=== PATIENT | female | born 1980 | race Hispanic/Latino ===

== ENCOUNTER 2016-10-27 13:22 | Emergency (ER) | payer OTHER ==
[~2016-10-27] VITALS: Ht 160 cm; Wt 79.4 kg
[~2016-10-27 13:22] MED LIST: ANTIVERT 25MG #1 PAC PO; ATIVAN0.5 MG PO; DOXYCYCLINE HY100 M4 PO; ESCITALOPRAM10 MG PO; EXCEDRIN MIGRAI1 TAB PO; FLONASE120 SPRAY/ NASB; IMITREX25 MG PO; IMITREX50 MG PO; LEVAQUIN500 MG PO; LEVSIN0.125 MG PO; LIDEX0.05 %/15 TOP; MIRENA52 MG; MOTRIN 600 MG600 MG PO; NORCO 325 MG-51 TAB PO; NOVAPLUS V0.09 MG/Ac INH; TESSALON PERLE100 MG PO; TRAMADOL50 MG PO; ZOFRAN 4 MG TABL4 MG PO; ZOFRAN4 M1 SL
[2016-10-27 13:41] VITALS: BP 111/80
--- NOTE | 2016-10-27 15:55 | ED UPPER/LOWER EXTREMITY COMPL ---
History of Present Illness General Chief Complaint: Lower Extremity Problems Stated Complaint: RIGHT LEG ISSUES Source: patient Exam Limitations: no limitations Vital Signs & Intake/Output Vital Signs & Intake/Output Vital Signs Date Time Temp Pulse Resp B/P Pulse O2 O2 Flow FiO2 Ox Delivery Rate 10/27 1540 Room Air 10/27 1341 98.9 94 20 111/80 99 Room Air Allergies Coded Allergies: Penicillins (unsure of reaction 08/01/16) Reconcile Medications Acetaminophen/Aspirin/Caffei (Excedrin Migraine 250 MG-250 MG-65 MG) 1 TAB TAB 1 TAB PO PRN HEADACHE (Reported) Doxycycline Hyclate 100 MG TABLET 1 TAB PO BID LYME Levonorgestrel (Mirena) 52 MG ICR CONTROL (Reported) Meclizine (Antivert) 25 MG PAC 1 TAB PO TIDPRN PRN dizziness Ondansetron (Zofran Odt) 4 MG ODT 1 ODT SL Q6P PRN NAUSEA Sumatriptan Succinate (Imitrex) 50 MG TAB 1 TAB PO DAILY NEEDED PRN Migraine Can repeat once after 2 hours if migraine persists. If no resolution, contact PCP Triage Note: RECEIVED 36 YO FEMALE C/O RIGHT ANKLE PAIN RADIATING UP LEG X ONE HOUR. PT UNABLE TO FLEX RIGHT KNEE OR ANKLE. OCCURED AFTER SITTING ON LEG FOR A WHILE THEN STRAIGHTENING IT OUT. Triage Nurses Notes Reviewed? yes Onset: Gradual Duration: constant Timing: single episode today Severity: severe Severity Numbers: 7 Method of Injury: unknown : No Patient currently breastfeeds: No HPI: Patient is a 36-year-old female who presents emergency and that 3 hours prior to arrival while in a seated position patient had acute onset of pain to the right lateral aspect of her heel and Achilles tendon in which she denies any mechanism injury however states that ambulation makes worse. Denies any ankle pain or foot pain Past History Travel History Traveled to [place] past 21 day No Medical History Any Pertinent Medical History? 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 No Review of Systems Review of Systems Constitutional: Reports: no symptoms. EENTM: Reports: no symptoms. Respiratory: Reports: no symptoms. Cardiovascular: Reports: no symptoms. Gastrointestinal/Abdominal: Reports: no symptoms. Genitourinary: Reports: no symptoms. Musculoskeletal: Reports: see HPI, joint pain. Skin: Reports: no symptoms. Neurological/Psychological: Reports: no symptoms. Hematologic/Endocrine: Reports: no symptoms. Immunological: Reports: no symptoms. All Other Systems: Reviewed and Negative Physical Exam Physical Exam General Appearance: well developed/nourished, no apparent distress, alert Neurologic/Tendon: normal sensation, normal motor functions, normal tendon functions, responds to pain, no evidence tendon injury Skin: intact, normal color, warm/dry Comments: Well-developed well-nourished no apparent distress. HEENT: Atraumatic, extraocular motion intact Neck: Supple, no lymphadenopathy Back: Nontender Respiratory: No respiratory distress Extremities: Neuro: Alert and oriented x3 Psych: Mood affect normal, normal memory normal judgment. Diagram Feet Left/Right 1) Posterior aspect of right lateral malleoli soft tissue point tenderness noted, Normal inspection Full active range of motion with pain elicited to plantarflexion and dorsiflexion and inversion 5 out of 5 resisted range of motion noted with pain noted with eversion and plantar flexion Pedal pulse +2 Dermatomes intact capillary refill less than 2 seconds Progress Differential Diagnosis: arterial insufficiency, cellulitis, compartment syndrome , contusion, dislocation, DVT, fracture, gout, septic arthritis, sprain, tendon injury Plan of Care: Patient has no mechanism of injury and at this time does not warrant emergent x- rays for patient's symptoms. Patient has reproducible pain with the right perineal muscle group for concerns of tendinitis. Patient was neurovascularly intact to the right foot and lower leg Patient was given [facility] practice for follow-up for primary care doctor. Patient was offered ibuprofen in the emergency room and declined Departure Departure Disposition: HOME OR SELF CARE Condition: Stable Clinical Impression Primary Impression: Peroneal tendonitis of right lower leg Referrals: EUGENIO COLLAZO MD (PCP/Family) Additional Instructions: As discussed you have been given a list of primary care doctors to establish, please call tomorrow the list OF new primary care doctor for follow-up. Begin icing the area directly 20 minutes every 2 hours. Begin [id number] ibuprofen for pain and inflammation. Begin using crutches until to walk without pain. If symptoms worsen return to emergency room. Departure Forms: Customer Survey General Discharge Information
== END 2016-10-27 16:03 ==
LOC: ERH 13:22
DX: M76.9 Unspecified enthesopathy, lower limb, excluding foot (principal)

== ENCOUNTER 2017-04-29 13:35 | Emergency (ER) | payer OTHER ==
[~2017-04-29] VITALS: Ht 160 cm; Wt 81.6 kg
[~2017-04-29 13:35] MED LIST changes: +AZITHROMYCIN250 M1 PO; +DIFLUCAN150 M1 PO; +EXCEDRIN MIGRA1 EAC1 PO; -EXCEDRIN MIGRAI1 TAB PO; +IMITREX50 M1 PO; +MIRENA1 EACH; -MIRENA52 MG
[2017-04-29 13:57] VITALS: BP 117/81
--- NOTE | 2017-04-29 15:16 | ED EAR COMPLAINT ---
History of Present Illness General Chief Complaint: Ear Complaints Stated Complaint: RIGHT EAR INFECTION Source: patient Exam Limitations: no limitations Vital Signs & Intake/Output Vital Signs & Intake/Output Vital Signs Date Time Temp Pulse Resp B/P B/P Pulse O2 O2 Flow FiO2 Mean Ox Delivery Rate 04/29 1357 97.0 85 20 117/81 98 Room Air Allergies Coded Allergies: Penicillins (unsure of reaction 08/01/16) Reconcile Medications Aspirin/Acetaminophen/Caffeine (Excedrin Migraine Caplet) 250 MG-250 MG-65 MG TABLET 1 TAB PO DAILY PRN HEADACHE (Reported) Azithromycin 250 MG TABLET 1 DP PO AD otitis media 2 the first day followed by 1 for days 2-5 Fluconazole (Diflucan) 150 MG TABLET 1 TAB PO ONCE yeast infection take 1 tab with yeast infection symptoms. take second tab if no resolution of symptoms in 72 hours Levonorgestrel (Mirena) 20 MCG/24 HOUR (5 YEARS) IUD BC (Reported) Sumatriptan Succinate (Imitrex) 50 MG TABLET 1 TAB PO DAILY PRN HEADACHE ( Reported) Triage Note: PT TO ED C/O CONTINUED B/L EAR PAIN. PT SEEN IN ED YESTERDAY, DIAGNOSED WITH DOUBLE EAR INFECTION. PT STARTED ZITHROMAX, HAS BEEN TAKING. PT FEELS LIKE SHE IS GETTING WORSE. AFEBRILE. Triage Nurses Notes Reviewed? yes Onset: Gradual Duration: constant Timing: recent history Severity: severe Severity Numbers: 7 : No Patient currently breastfeeds: No HPI: Patient is a 37-year-old female who presents emergency room with concerns of feeling no better of a bilateral ear infection which she was evaluated here yesterday at [facility] where she was administered a prescription of azithromycin were patient has had 3 doses and still complains of bilateral ear pain. Denies any fever chills (ARTURO ARENAS) Past History Travel History Traveled to [place] past 21 day No Medical History Any Pertinent Medical History? 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 No (ARTURO ARENAS) Review of Systems Review of Systems Constitutional: Reports: no symptoms. EENTM: Reports: see HPI, ear pain. Respiratory: Reports: no symptoms. Cardiovascular: Reports: no symptoms. GI: Reports: no symptoms. Genitourinary: Reports: no symptoms. Musculoskeletal: Reports: no symptoms. Skin: Reports: no symptoms. Neurological/Psychological: Reports: no symptoms. Hematologic/Endocrine: Reports: no symptoms. Immunologic/Allergic: Reports: no symptoms. All Other Systems: Reviewed and Negative (ARTURO ARENAS) Physical Exam Physical Exam General Appearance: no apparent distress, alert, comfortable Ears: Bilateral: canal normal. Comments: Well-developed well-nourished person in no acute distress HEENT:extraocular motion intact, no nystagmus. Pupils equally round and reactive to light and accommodation. Nose is atraumatic. External auditory canal CLEAR, RIGHT TM NOTED bulging and serous fluid, left tympanic membrane noted to be erythematous and bulging. Pharynx normal. No swelling or edema. No mastoid tenderness Neck: Supple, no lymphadenopathy, normal range of motion without pain or tenderness Back: Nontender, no CVA tenderness. Extremity: No edema, no calf tenderness to palpation, normal and equal pulses. Neuro: Alert oriented x3, motor sensory normal, Skin: No appreciable rash on exposed skin, skin is warm and dry. Psych: Mood and affect is normal, memory and judgment is normal. (ARTURO ARENAS) Progress Differential Diagnoses I considered the following diagnoses in my evaluation of the patient: [Sinusitis , pharyngitis, otitis media, otitis externa, mastoiditis, sepsis] Plan of Care: Current Medications Sig/Yolanda Start time Last Medication Dose Stop Time Status Admin Ketorolac 30 MG ONCE ONE 04/29 1530 UNVr Tromethamine 04/29 1531 (Toradol) Tympanic membrane was noted to be intact. Patient was strongly advised to follow-up with discharged instructions and plan and she will comply (ARTURO ARENAS) Initial ED EKG: none (ARTURO ARENAS) Departure Departure Disposition: HOME OR SELF CARE Condition: Stable Clinical Impression Primary Impression: Otitis media Referrals: ADDIS ALMONTE,NEWTON Guzman PATIENT HAS NO PRIMARY CARE DR (PCP/Family) Additional Instructions: DISCUSSED Begin the prescription of CEFDINIR as directed. Begin the prescription ketorolac for pain and inflammation. If symptoms worsen return to the emergency room. If no better by Friday follow-up with ENT DR. MANCINI Departure Forms: Customer Survey General Discharge Information (ARTURO ARENAS) PA/DRILL SHARPENER Co-Sign Statement Statement: ED Attending supervision documentation- [] I saw and evaluated the patient. I have also reviewed all the pertinent lab results and diagnostic results. I agree with the findings and the plan of care as documented in the PA's/DRILL SHARPENER's documentation. [X] I have reviewed the ED Record and agree with the PA's/DRILL SHARPENER's documentation. [] Additions or exceptions (if any) to the PAs/DRILL SHARPENER's note and plan are summarized below: [] (KARSON MONTANA DO
== END 2017-04-29 15:34 ==
LOC: ERH 13:35
DX: H66.93 Otitis media, unspecified, bilateral (principal)
CPT/HCPCS: 96372; J1885